=== PATIENT | male | born 1980 | race Asian ===

== ENCOUNTER 2017-08-27 11:15 | Emergency (ER) | payer MEDICAID ==
[~2017-08-27] VITALS: Ht 172.7 cm; Wt 79.8 kg
[2017-08-27 15:09] VITALS: BP 110/64
== END 2017-08-27 15:09 | disposition home or self-care (01) ==
LOC: ED 11:15
DX: F07.81 Postconcussional syndrome (principal)
CPT/HCPCS: J1885; J8597

== ENCOUNTER 2019-01-12 10:04 | Emergency (ER) | payer MEDICAID ==
[~2019-01-12] VITALS: Ht 162.6 cm; Wt 77.1 kg
[2019-01-12 10:10] VITALS: Ht 162.6 cm; Wt 77.1 kg
[2019-01-12 11:08] LABS: BASOPHIL % 0.5 % (0-2); PLATELET COUNT 223 x10^3mcL (130-400); RED CELL DISTRIBUTION WIDTH 12.5 % (11.5-14.5)
[2019-01-12 11:18] LABS: CALCIUM 8.9 mg/dL (8.5-10.1); CARBON DIOXIDE 28.7 mmol/L (21-32); CHLORIDE SERUM 105 mmol/L (98-107); CREATININE SERUM 0.9 mg/dL (0.7-1.3); GFR1 > 60 mL/min; GLUCOSE SERUM 143 mg/dL (74-106); POTASSIUM SERUM 3.8 mmol/L (3.5-5.1); SODIUM SERUM 143 mmol/L (136-145)
[2019-01-12 11:22] LABS: ALBUMIN 4.2 g/dL (3.4-5.0); ALKALINE PHOSPHATASE 105 U/L (46-116); ALT/SGPT 91 U/L (16-63); AST/SGOT 24 U/L (15-37); BILIRUBIN TOTAL 0.5 mg/dL (0.20-1.00); TOTAL PROTEIN, SERUM 8.2 g/dL (6.4-8.2)
[2019-01-12 14:20] VITALS: BP 122/71
== END 2019-01-12 14:20 | disposition home or self-care (01) ==
LOC: ED 10:04
DX: N20.2 Calculus of kidney with calculus of ureter (principal)
CPT/HCPCS: J1885; J2405; J3010; J7030

== ENCOUNTER 2019-01-23 20:38 | Emergency (ER) | payer MEDICAID ==
[~2019-01-23] VITALS: Ht 167.6 cm; Wt 79.4 kg
[2019-01-23 20:58] VITALS: Ht 167.6 cm; Wt 79.4 kg
[2019-01-23 22:04] LABS: PLATELET COUNT 226 x10^3mcL (130-400); RED CELL DISTRIBUTION WIDTH 12.5 % (11.5-14.5)
[2019-01-23 22:08] LABS: CALCIUM 8.8 mg/dL (8.5-10.1); CHLORIDE SERUM 108 mmol/L (98-107); CREATININE SERUM 0.8 mg/dL (0.7-1.3); GFR1 > 60 mL/min; GLUCOSE SERUM 98 mg/dL (74-106); POTASSIUM SERUM 3.8 mmol/L (3.5-5.1); SODIUM SERUM 144 mmol/L (136-145)
== END 2019-01-23 23:35 | disposition home or self-care (01) ==
LOC: ED 20:38
PROVIDERS: Emergency Medicine
DX: N23 Unspecified renal colic (principal); Z87.442 Personal history of urinary calculi
CPT/HCPCS: 36415

== ENCOUNTER 2019-05-22 23:51 | Emergency (ER) | payer MEDICAID ==
[~2019-05-22] VITALS: Ht 165.1 cm; Wt 82.6 kg
[2019-05-23 00:07] VITALS: Ht 165.1 cm; Wt 82.6 kg
[2019-05-23 01:17] LABS: CARBON DIOXIDE 22.7 mmol/L (21-32); CHLORIDE SERUM 100 mmol/L (98-107); GFR1 > 60 mL/min; GLUCOSE SERUM 156 mg/dL (74-106); POTASSIUM SERUM 3.6 mmol/L (3.5-5.1); SODIUM SERUM 138 mmol/L (136-145); TOTAL PROTEIN, SERUM 7.9 g/dL (6.4-8.2)
[2019-05-23 01:18] LABS: ALKALINE PHOSPHATASE 103 U/L (46-116); ALT/SGPT 128 U/L (16-63); AST/SGOT 47 U/L (15-37); CALCIUM 8.8 mg/dL (8.5-10.1); LIPASE 93 IU/L (73-393)
[2019-05-23 01:34] LABS: PLATELET COUNT 204 x10^3mcL (130-400); RED CELL DISTRIBUTION WIDTH 12.8 % (11.5-14.5)
[2019-05-23 01:54] LABS: BASOPHIL % 0 % (0-2)
[2019-05-23 04:16] VITALS: BP 110/73
== END 2019-05-23 04:16 | disposition home or self-care (01) ==
LOC: ED 23:51
PROVIDERS: Emergency Medicine
DX: R10.84 Generalized abdominal pain (principal); R50.9 Fever, unspecified; R11.0 Nausea
CPT/HCPCS: J1885; J2405; J7030; Q0162